=== PATIENT | male | born 1965 | race Caucasian/White ===

== ENCOUNTER → 2017-02-28 | Outpatient (CLI) | payer BC ==
[~2017-02-28] MED LIST: LOPRESSOR 25 MG25 MG PO
== END ==
LOC: HEART 5 07:51
DX: R07.9 Chest pain, unspecified (principal); F17.200 Nicotine dependence, unspecified, uncomplicated
CPT/HCPCS: 78452; 93306; A9502

== ENCOUNTER → 2020-12-21 | Outpatient (CLI) | payer OTHER | LOC: EXRD 08:02 | DX: M54.12 Radiculopathy, cervical region (principal); M48.02 Spinal stenosis, cervical region; M43.8X2 Other specified deforming dorsopathies, cervical region; M43.22 Fusion of spine, cervical region | CPT/HCPCS: 72040; 73030 ==

== ENCOUNTER → 2021-07-29 | Outpatient (CLI) | payer BC | LOC: EXRD 09:23 | DX: R07.81 Pleurodynia (principal) | CPT/HCPCS: 71046 ==